=== PATIENT | male | born 1960 | race Caucasian/White ===

== ENCOUNTER 2020-12-05 16:17 | Inpatient (IN) | payer BC ==
[2020-12-05 17:47] VITALS: BMI 39.4
[2020-12-05] MEDS ORDERED: HumaLOG 300 UNITS/3 ML VIAL SC PRN ×2 (19:29)
[2020-12-05] MEDS ORDERED: Bisacodyl 5 MG TAB PO PRN (19:29)
[2020-12-05] MEDS ORDERED: Dextrose 5% in Water 1,000 ML IV PRN (19:29)
[2020-12-05] MEDS ORDERED: Ondansetron PF 4 MG/2 ML Vial IVP PRN (19:29)
[2020-12-05] MEDS ORDERED: Dextrose 50% Abboject 50 ML SYRINGE SLOW IVP PRN (19:29)
[2020-12-05] MEDS ORDERED: hydrALAZINE 20 MG/ML VIAL SLOW IVP PRN (19:34)
[2020-12-05] MEDS: Morphine 4 MG/ML VIAL SLOW IVP PRN (20:53)
[2020-12-05] MEDS: Sodium Chloride 0.9% 1,000 ML IV SCH (20:54)
[2020-12-05] MEDS: Famotidine 20 MG TAB PO SCH (20:54)
[2020-12-05] MEDS: Acetaminophen 325 MG TAB PO PRN (23:51)
[2020-12-05] MEDS: Benzonatate 100 MG CAP PO PRN (23:51)
[2020-12-06] MEDS: Morphine 4 MG/ML VIAL SLOW IVP PRN ×2 (04:42→12:57)
[2020-12-06] MEDS: Benzonatate 100 MG CAP PO PRN ×3 (04:43→20:15)
[2020-12-06 06:22] LABS: ALT (SGPT) 61 U/L (8-55); AST (SGOT) 47 U/L (5-34); Albumin 3.2 g/dL (3.5-5.0); Alkaline Phosphatase 122 U/L (40-110); Anion Gap 12 mmol/L (10-20); BUN (Urea Nitrogen) 14 mg/dL (8.4-25.7); Bilirubin, Total 1.9 mg/dL (0.2-1.2); Calc. Creatinine Clearance 157 mL/min (70-130); Calcium 8.6 mg/dL (7.8-10.44); Carbon Dioxide 23 mmol/L (22-29); Chloride 103 mmol/L (98-107); Globulin 3.2 g/dL (2.4-3.5); Glucose 133 mg/dL (70-105); Potassium 3.7 mmol/L (3.5-5.1); Protein, Total 6.4 g/dL (6.0-8.3); Sodium 134 mmol/L (136-145)
[2020-12-06 06:23] LABS: Band 16 % (5-11); Hemoglobin 12.6 g/dL (14.0-18.0); Lymphocytes 6 % (21-51); MDiff Complete? YES; Mean Corpuscular HGB CONC 33.3 g/dL (32.0-36.0); Mean Corpuscular Hemoglobin 33.7 pg (27.0-31.0); Mean Platelet Volume 7.2 fL (7.4-10.4); Monocytes 10 % (0-10); Neutrophil 68 % (42-75); Platelet Count 174 thou/uL (130-400); RBC Distribution Width 11.6 % (11.5-14.5); Red Blood Cell (RBC) Count 3.75 mill/uL (4.70-6.10); White Blood Cell (WBC) Count 24.3 thou/uL (4.8-10.8)
[2020-12-06] MEDS: Famotidine 20 MG TAB PO SCH ×2 (08:02→20:13)
[2020-12-06] MEDS: Sodium Chloride 0.9% 1,000 ML IV SCH ×2 (08:02→21:31)
[2020-12-06] MEDS: Enoxaparin Sodium 40 MG/0.4 ML SYRINGE SC SCH (08:02)
[2020-12-06] MEDS: HYDROcodone/Acetaminophen 5/325 mg Tablet PO PRN ×2 (08:03→17:03)
[2020-12-06] MEDS ORDERED: Loperamide HCl 2 MG CAP PO PRN (08:17)
[2020-12-06] MEDS ORDERED: Calcium Carbonate 500 MG ChewTAB PO PRN (08:17)
[2020-12-06] MEDS ORDERED: Senokot S 8.6-50 MG TAB PO PRN (08:17)
[2020-12-06] MEDS ORDERED: Sodium Chloride 0.65% Nasal 44 ML BOT EA NARE PRN (08:17)
[2020-12-06] MEDS ORDERED: Cepastat Lozenges 1 LOZ PO PRN (08:17)
[2020-12-06] MEDS ORDERED: Ondansetron ODT 4 MG TAB PO PRN (08:17)
[2020-12-06] MEDS ORDERED: Loratadine 10 MG TAB PO PRN (08:17)
[2020-12-06] MEDS: Folic Acid 1 MG TAB PO SCH (08:50)
[2020-12-06] MEDS: guaiFENesin ER 600 MG TAB PO SCH ×2 (08:50→20:13)
[2020-12-06] MEDS: Cyanocobalamin (Vitamin B-12) 1,000 MCG TAB PO SCH (08:50)
[2020-12-06] MEDS: Thiamine 100 MG TAB PO SCH (08:50)
[2020-12-06 12:32] LABS: Legionella Urinary Ag Negative (Negative); Strep pneumo Urine Ag NEGATIVE (NEGATIVE)
[2020-12-06] MEDS: GUAIFENESIN SF SOLN 200 MG/10 ML UDCUP PO PRN (17:04)
[2020-12-06] MEDS: Acetaminophen 325 MG TAB PO PRN (20:15)
[2020-12-06] MEDS: Zolpidem Tartrate 5 MG TAB PO PRN (20:22)
[2020-12-07] MEDS: GUAIFENESIN SF SOLN 200 MG/10 ML UDCUP PO PRN (01:42)
[2020-12-07] MEDS: HYDROcodone/Acetaminophen 5/325 mg Tablet PO PRN ×2 (01:42→05:45)
[2020-12-07] MEDS: Sodium Chloride 0.9% 1,000 ML IV SCH (01:46)
[2020-12-07] MEDS: Benzonatate 100 MG CAP PO PRN ×2 (05:45→08:30)
[2020-12-07 06:26] LABS: Hemoglobin 12.3 g/dL (14.0-18.0); Mean Corpuscular HGB CONC 32.5 g/dL (32.0-36.0); Mean Corpuscular Hemoglobin 32.5 pg (27.0-31.0); Mean Corpuscular Volume 99.8 fL (78.0-98.0); Mean Platelet Volume 6.9 fL (7.4-10.4); Platelet Count 185 thou/uL (130-400); RBC Distribution Width 11.6 % (11.5-14.5); Red Blood Cell (RBC) Count 3.79 mill/uL (4.70-6.10); White Blood Cell (WBC) Count 16.7 thou/uL (4.8-10.8)
[2020-12-07 06:45] LABS: ALT (SGPT) 54 U/L (8-55); AST (SGOT) 42 U/L (5-34); Albumin 3.1 g/dL (3.5-5.0); Alkaline Phosphatase 83 U/L (40-110); Anion Gap 10 mmol/L (10-20); BUN (Urea Nitrogen) 12 mg/dL (8.4-25.7); Bilirubin, Total 0.9 mg/dL (0.2-1.2); Calc. Creatinine Clearance 169 mL/min (70-130); Calcium 8.8 mg/dL (7.8-10.44); Carbon Dioxide 23 mmol/L (22-29); Chloride 104 mmol/L (98-107); Globulin 3.2 g/dL (2.4-3.5); Glucose 107 mg/dL (70-105); Magnesium 1.7 mg/dL (1.6-2.6); Phosphorus 2.1 mg/dL (2.3-4.7); Potassium 3.6 mmol/L (3.5-5.1); Protein, Total 6.3 g/dL (6.0-8.3); Sodium 133 mmol/L (136-145)
[2020-12-07] MEDS ORDERED: PHOS-NAK 1 PKT PACK PO SCH (07:00)
[2020-12-07 07:02] LABS: HBCM Index 0.06 S/CO (0-0.79); HBSAg Index 0.22 S/CO (0-0.99); Hep A IgM AB Non-Reactive (NonReactive); Hep A IgM S/CO 0.66 S/CO (0-0.79); Hep B Surf Ag Non-Reactive S/CO (NonReactive); Hepatitis B Core IgM Abs Non-Reactive (NonReactive)
[2020-12-07 07:14] LABS: Band 21 % (5-11); Eosinophils 1 % (0-10); Lymphocytes 8 % (21-51); MDiff Complete? YES; Monocytes 6 % (0-10); Neutrophil 64 % (42-75)
[2020-12-07 07:20] LABS: Hep C IgG Ab Reflex HepC Qnt (NonReactive); Hep C Index 16.25 S/CO (0-0.79)
[2020-12-07] MEDS: Potassium Chloride 10 MEQ TAB PO SCH (08:32)
[2020-12-07] MEDS: Magnesium Oxide 400 MG TAB PO SCH (08:32)
[2020-12-07] MEDS: Folic Acid 1 MG TAB PO SCH (08:32)
[2020-12-07] MEDS: Thiamine 100 MG TAB PO SCH (08:32)
[2020-12-07] MEDS: Famotidine 20 MG TAB PO SCH ×2 (08:32→21:05)
[2020-12-07] MEDS: guaiFENesin ER 600 MG TAB PO SCH ×2 (08:32→21:04)
[2020-12-07] MEDS: Cyanocobalamin (Vitamin B-12) 1,000 MCG TAB PO SCH (08:33)
[2020-12-07] MEDS: Enoxaparin Sodium 40 MG/0.4 ML SYRINGE SC SCH (08:34)
[2020-12-07] MEDS: Zolpidem Tartrate 5 MG TAB PO PRN (21:05)
[2020-12-08] MEDS: Acetaminophen 325 MG TAB PO PRN (02:32)
[2020-12-08] MEDS: Benzonatate 100 MG CAP PO PRN ×2 (02:32→05:57)
[2020-12-08] MEDS: HYDROcodone/Acetaminophen 5/325 mg Tablet PO PRN (05:58)
[2020-12-08 06:19] LABS: #Eosinphils 0.3 thou/uL (0.0-0.7); #Lymphocytes 2.4 thou/uL (1.20-3.40); #Monocytes 0.7 thou/uL (0.11-0.59); #Neutrophils 6.4 thou/uL (1.40-6.50); %Basophils 0.2 % (0.0-1.0); %Eosinophils 2.8 % (0.0-10.0); %Lymphocytes 24.5 % (21.0-51.0); %Monocytes 7.5 % (0.0-10.0); Hemoglobin 12.7 g/dL (14.0-18.0); Mean Corpuscular HGB CONC 34.4 g/dL (32.0-36.0); Mean Corpuscular Volume 98.7 fL (78.0-98.0); Mean Platelet Volume 6.7 fL (7.4-10.4); Platelet Count 199 thou/uL (130-400); RBC Distribution Width 11.6 % (11.5-14.5); Red Blood Cell (RBC) Count 3.74 mill/uL (4.70-6.10); White Blood Cell (WBC) Count 9.9 thou/uL (4.8-10.8)
[2020-12-08 06:53] LABS: Anion Gap 11 mmol/L (10-20); BUN (Urea Nitrogen) 11 mg/dL (8.4-25.7); Calc. Creatinine Clearance 167 mL/min (70-130); Calcium 8.8 mg/dL (7.8-10.44); Carbon Dioxide 25 mmol/L (22-29); Chloride 104 mmol/L (98-107); Glucose 112 mg/dL (70-105); Phosphorus 3.2 mg/dL (2.3-4.7); Potassium 3.7 mmol/L (3.5-5.1); Sodium 136 mmol/L (136-145)
[2020-12-08] MEDS: Famotidine 20 MG TAB PO SCH (08:17)
[2020-12-08] MEDS: Magnesium Oxide 400 MG TAB PO SCH (08:17)
[2020-12-08] MEDS: Potassium Chloride 10 MEQ TAB PO SCH (08:17)
[2020-12-08] MEDS: Thiamine 100 MG TAB PO SCH (08:18)
[2020-12-08] MEDS: Cyanocobalamin (Vitamin B-12) 1,000 MCG TAB PO SCH (08:18)
[2020-12-08] MEDS: Enoxaparin Sodium 40 MG/0.4 ML SYRINGE SC SCH (08:18)
[2020-12-08] MEDS: Folic Acid 1 MG TAB PO SCH (08:18)
[2020-12-08] MEDS: guaiFENesin ER 600 MG TAB PO SCH (08:18)
[2020-12-08 08:23] VITALS: BP 138/82; TEMP 98
[2020-12-09 18:38] LABS: HCV log10 4.185 (.); Hep C PCR-Quant 15300 IU/mL (.)
== END 2020-12-08 11:18 | disposition home or self-care (01) | DRG 871 ==
LOC: T4-B 16:17
PROVIDERS: ADMIT Internal Medicine; ATTEND Internal Medicine
DX: A41.9 Sepsis, unspecified organism (principal); J18.9 Pneumonia, unspecified organism; E87.2 Acidosis; N30.00 Acute cystitis without hematuria; I10 Essential (primary) hypertension; E11.40 Type 2 diabetes mellitus with diabetic neuropathy, unspecified; R94.5 Abnormal results of liver function studies; K74.60 Unspecified cirrhosis of liver; D53.9 Nutritional anemia, unspecified; B18.2 Chronic viral hepatitis C; E66.9 Obesity, unspecified; Z68.39 Body mass index [BMI] 39.0-39.9, adult
CPT/HCPCS: 36415; 36416; 74176; 80048; 80053; 80074; 83605; 83735; 84100; 85007; 85025; 85027; 87070; 87086; 87205; 87449; 87522; 87899; J1650; J1956; J2270

== ENCOUNTER 2021-07-30 09:42 | Outpatient (CLI) | payer BC | END 2021-07-30 09:43 | disposition home or self-care (01) | LOC: ULT 09:42 | PROVIDERS: ATTEND Physician Assistant Medical | DX: K74.60 Unspecified cirrhosis of liver (principal); B18.2 Chronic viral hepatitis C; R16.1 Splenomegaly, not elsewhere classified | CPT/HCPCS: 76705 ==

== ENCOUNTER 2021-12-21 15:40 | Inpatient (IN) | payer BC ==
[~2021-12-21 15:40] MED LIST: Iopamidol 370 76% 100 ML VIAL ONE
[2021-12-21 16:38] LABS: INR-International Normal Ratio 1.1; Prothrombin Time 13.9 sec (12.0-14.7)
[2021-12-21 16:41] LABS: Hemoglobin 14.6 g/dL (14.0-18.0); Mean Corpuscular HGB CONC 33.2 g/dL (32.0-36.0); Mean Corpuscular Hemoglobin 32.8 pg (27.0-31.0); Mean Corpuscular Volume 98.6 fL (78.0-98.0); Mean Platelet Volume 6.4 fL (7.4-10.4); Platelet Count 178 thou/uL (130-400); RBC Distribution Width 11.9 % (11.5-14.5); Red Blood Cell (RBC) Count 4.44 mill/uL (4.70-6.10); White Blood Cell (WBC) Count 14.6 thou/uL (4.8-10.8)
[2021-12-21 16:45] LABS: ALT (SGPT) 27 U/L (8-55); AST (SGOT) 27 U/L (5-34); Albumin 4.2 g/dL (3.5-5.0); Alkaline Phosphatase 96 U/L (40-110); Anion Gap 18 mmol/L (10-20); BUN (Urea Nitrogen) 15 mg/dL (8.4-25.7); Bilirubin, Total 1.7 mg/dL (0.2-1.2); Calc. Creatinine Clearance 0 mL/min (70-130); Calcium 9.4 mg/dL (7.8-10.44); Carbon Dioxide 22 mmol/L (22-29); Chloride 97 mmol/L (98-107); Globulin 4.1 g/dL (2.4-3.5); Glucose 240 mg/dL (70-105); Potassium 4.2 mmol/L (3.5-5.1); Protein, Total 8.3 g/dL (6.0-8.3); Sodium 133 mmol/L (136-145)
[2021-12-21] MEDS ORDERED: cefTRIAXone\\ROCEPHIN 2 GM VIAL ONE (16:54)
[2021-12-21 17:00] LABS: Band 7 % (5-11); Lymphocytes 8 % (21-51); MDiff Complete? YES; Monocytes 8 % (0-10); Neutrophil 72 % (42-75); Platelet Morphology Comment Appears Adequate; Polychromasia SLIGHT = 2-3 cells (100X) (0-2/hpf); Reactive Lymphocytes 5 % (0-10); Stomatocytes SLIGHT = 2-5 cells (100X) (0-1/hpf)
[2021-12-21 17:22] LABS: CK (CPK) 134 U/L (30-200); Lipase 23 U/L (8-78)
[2021-12-21] MEDS ORDERED: Acetaminophen 500 MG TAB ONE (17:33)
[2021-12-21] MEDS ORDERED: Azithromycin 500 MG VIAL ONE (17:33)
[2021-12-21 18:48] LABS: SARS-CoV-2 NAA Rapid Test Not Detected (NotDetected)
[2021-12-21] MEDS ORDERED: Ibuprofen 800 MG TAB ONE (19:15)
[2021-12-21] MEDS ORDERED: HumaLOG 300 UNITS/3 ML VIAL SC PRN ×2 (19:50)
[2021-12-21] MEDS ORDERED: Bisacodyl 5 MG TAB PO PRN (19:50)
[2021-12-21] MEDS ORDERED: Dextrose 50% Abboject 50 ML SYRINGE SLOW IVP PRN (19:50)
[2021-12-21] MEDS ORDERED: Dextrose 5% in Water 1,000 ML IV PRN (19:50)
[2021-12-21] MEDS ORDERED: Ondansetron PF 4 MG/2 ML Vial IVP PRN (19:50)
[2021-12-21] MEDS ORDERED: Zolpidem Tartrate 5 MG TAB PO PRN (19:50)
[2021-12-21] MEDS ORDERED: hydrALAZINE 20 MG/ML VIAL SLOW IVP PRN (19:54)
[2021-12-21] MEDS ORDERED: Morphine 2 MG/ML VIAL SLOW IVP PRN (19:54)
[2021-12-21] MEDS ORDERED: Sodium Chloride 0.9% 1,000 ML IV SCH (20:00)
[2021-12-21 21:01] VITALS: BMI 40.0
[2021-12-21] MEDS: Gabapentin 300 MG CAP PO SCH (21:30)
[2021-12-21] MEDS: Acetaminophen 325 MG TAB PO PRN (21:30)
[2021-12-21] MEDS: Cefepime 2 GM in Sodium Chloride 0.9% 100 ML IVPB SCH ×2 (21:31→23:34)
[2021-12-21] MEDS: Atorvastatin Calcium 20 MG TAB PO SCH (21:31)
[2021-12-21] MEDS: Famotidine 20 MG TAB PO SCH (21:31)
[2021-12-21] MEDS: HYDROcodone/Acetaminophen 10/325 mg Tablet PO PRN (23:33)
[2021-12-21] MEDS: Propranolol 10 MG TAB PO SCH (23:34)
[2021-12-22 04:37] LABS: #Eosinphils 0.2 thou/uL (0.0-0.7); #Lymphocytes 1.8 thou/uL (1.20-3.40); #Monocytes 1.3 thou/uL (0.11-0.59); #Neutrophils 7.3 thou/uL (1.40-6.50); %Basophils 0.3 % (0.0-1.0); %Eosinophils 1.8 % (0.0-10.0); %Lymphocytes 17.2 % (21.0-51.0); %Neutrophils 68.8 % (42.0-75.0); Hemoglobin 13.3 g/dL (14.0-18.0); Mean Corpuscular HGB CONC 33.1 g/dL (32.0-36.0); Mean Corpuscular Hemoglobin 33.5 pg (27.0-31.0); Mean Platelet Volume 6.8 fL (7.4-10.4); Platelet Count 159 thou/uL (130-400); RBC Distribution Width 11.9 % (11.5-14.5); Red Blood Cell (RBC) Count 3.97 mill/uL (4.70-6.10); White Blood Cell (WBC) Count 10.7 thou/uL (4.8-10.8)
[2021-12-22 04:58] LABS: ALT (SGPT) 25 U/L (8-55); AST (SGOT) 23 U/L (5-34); Albumin 3.5 g/dL (3.5-5.0); Alkaline Phosphatase 80 U/L (40-110); Anion Gap 11 mmol/L (10-20); BUN (Urea Nitrogen) 16 mg/dL (8.4-25.7); Bilirubin, Total 1.2 mg/dL (0.2-1.2); Calc. Creatinine Clearance 136 mL/min (70-130); Calcium 8.6 mg/dL (7.8-10.44); Carbon Dioxide 27 mmol/L (22-29); Chloride 103 mmol/L (98-107); Globulin 3.4 g/dL (2.4-3.5); Glucose 157 mg/dL (70-105); Potassium 3.8 mmol/L (3.5-5.1); Protein, Total 6.9 g/dL (6.0-8.3); Sodium 137 mmol/L (136-145); Troponin I Less than 0.010 ng/mL (< 0.028)
[2021-12-22] MEDS: Propranolol 10 MG TAB PO SCH ×4 (05:41→23:42)
[2021-12-22] MEDS: HYDROcodone/Acetaminophen 10/325 mg Tablet PO PRN ×2 (05:59→20:37)
[2021-12-22] MEDS ORDERED: metFORMIN 500 MG TAB PO SCH (08:00)
[2021-12-22] MEDS: Famotidine 20 MG TAB PO SCH ×2 (09:09→20:37)
[2021-12-22] MEDS: Gabapentin 300 MG CAP PO SCH ×3 (09:09→20:37)
[2021-12-22] MEDS: Enoxaparin Sodium 40 MG/0.4 ML SYRINGE SC SCH (09:09)
[2021-12-22] MEDS: Acetaminophen 325 MG TAB PO PRN (11:58)
[2021-12-22] MEDS: Cefepime 2 GM in Sodium Chloride 0.9% 100 ML IVPB SCH (11:58)
[2021-12-22] MEDS: Sodium Chloride 0.9% 1,000 ML IV SCH (14:28)
[2021-12-22] MEDS: Atorvastatin Calcium 20 MG TAB PO SCH (20:37)
[2021-12-22] MEDS: Guaifenesin DM 100-10/5 ML UDCUP PO PRN (20:37)
[2021-12-23 04:48] LABS: #Eosinphils 0.4 thou/uL (0.0-0.7); #Lymphocytes 2.5 thou/uL (1.20-3.40); #Neutrophils 5.3 thou/uL (1.40-6.50); %Basophils 0.2 % (0.0-1.0); %Eosinophils 4.9 % (0.0-10.0); %Monocytes 10.9 % (0.0-10.0); %Neutrophils 57.2 % (42.0-75.0); Hemoglobin 13.3 g/dL (14.0-18.0); Mean Corpuscular HGB CONC 33.9 g/dL (32.0-36.0); Mean Corpuscular Hemoglobin 33.9 pg (27.0-31.0); Mean Platelet Volume 6.4 fL (7.4-10.4); Platelet Count 186 thou/uL (130-400); RBC Distribution Width 11.9 % (11.5-14.5); Red Blood Cell (RBC) Count 3.93 mill/uL (4.70-6.10); White Blood Cell (WBC) Count 9.3 thou/uL (4.8-10.8)
[2021-12-23 05:08] LABS: Anion Gap 13 mmol/L (10-20); BUN (Urea Nitrogen) 13 mg/dL (8.4-25.7); Calc. Creatinine Clearance 157 mL/min (70-130); Calcium 8.8 mg/dL (7.8-10.44); Carbon Dioxide 24 mmol/L (22-29); Chloride 102 mmol/L (98-107); Glucose 105 mg/dL (70-105); Potassium 3.7 mmol/L (3.5-5.1); Sodium 135 mmol/L (136-145)
[2021-12-23] MEDS: Propranolol 10 MG TAB PO SCH ×3 (05:27→22:16)
[2021-12-23] MEDS: Guaifenesin DM 100-10/5 ML UDCUP PO PRN (05:27)
[2021-12-23] MEDS: HYDROcodone/Acetaminophen 10/325 mg Tablet PO PRN ×2 (05:27→15:17)
[2021-12-23] MEDS: Enoxaparin Sodium 40 MG/0.4 ML SYRINGE SC SCH (09:27)
[2021-12-23] MEDS: Sodium Chloride 0.9% 1,000 ML IV SCH (09:27)
[2021-12-23] MEDS: Gabapentin 300 MG CAP PO SCH ×2 (09:27→15:14)
[2021-12-23] MEDS: Famotidine 20 MG TAB PO SCH ×2 (09:27→22:16)
[2021-12-23] MEDS ORDERED: HumaLOG 300 UNITS/3 ML VIAL SC PRN (17:05)
[2021-12-23] MEDS: Atorvastatin Calcium 20 MG TAB PO SCH (22:16)
[2021-12-23] MEDS: Gabapentin 400 MG CAP PO SCH (22:19)
[2021-12-23] MEDS ORDERED: traZODone HCl 50 MG TAB PO SCH (23:15)
[2021-12-24] MEDS ORDERED: glipiZIDE 5 MG TAB PO SCH (07:30)
[2021-12-24] MEDS: Famotidine 20 MG TAB PO SCH (08:28)
[2021-12-24] MEDS: Propranolol 10 MG TAB PO SCH (08:28)
[2021-12-24] MEDS: Gabapentin 400 MG CAP PO SCH (08:39)
[2021-12-24] MEDS ORDERED: Cyanocobalamin (Vitamin B-12) 1,000 MCG TAB PO SCH ×2 (09:00)
[2021-12-24 11:04] VITALS: BP 134/65; TEMP 98
== END 2021-12-24 12:14 | disposition home or self-care (01) | DRG 871 ==
LOC: ERS 15:40 → 2NO 19:23
PROVIDERS: ADMIT Internal Medicine; ATTEND Internal Medicine
DX: A41.9 Sepsis, unspecified organism (principal); J18.9 Pneumonia, unspecified organism; Z68.41 Body mass index [BMI] 40.0-44.9, adult; E87.1 Hypo-osmolality and hyponatremia; Z20.822 Contact with and (suspected) exposure to COVID-19; M54.9 Dorsalgia, unspecified; E66.9 Obesity, unspecified; M79.661 Pain in right lower leg; D53.9 Nutritional anemia, unspecified; G89.4 Chronic pain syndrome; K74.60 Unspecified cirrhosis of liver; R16.1 Splenomegaly, not elsewhere classified; N18.2 Chronic kidney disease, stage 2 (mild); N40.0 Benign prostatic hyperplasia without lower urinary tract symptoms; E78.5 Hyperlipidemia, unspecified; E11.22 Type 2 diabetes mellitus with diabetic chronic kidney disease; I12.9 Hypertensive chronic kidney disease with stage 1 through stage 4 chronic kidney disease, or unspecified chronic kidney disease; E11.40 Type 2 diabetes mellitus with diabetic neuropathy, unspecified; Z79.899 Other long term (current) drug therapy; Z79.84 Long term (current) use of oral hypoglycemic drugs
CPT/HCPCS: 36415; 36416; 71045; 71275; 80048; 80053; 82550; 83605; 83690; 83880; 84443; 84484; 85025; 85379; 85610; 85730; 87040; 87804; 93005; 96365; 96367; J0456; J0692; J0696; J1650; J1815; J1956; J3490; J7050; Q9967; U0002

== ENCOUNTER 2022-01-28 07:07 | Outpatient (CLI) | payer BC | END 2022-01-28 07:08 | disposition home or self-care (01) | LOC: BICULT 07:07 | PROVIDERS: ATTEND Physician Assistant Medical | DX: K74.60 Unspecified cirrhosis of liver (principal); I85.00 Esophageal varices without bleeding; R16.1 Splenomegaly, not elsewhere classified | CPT/HCPCS: 76705 ==

== ENCOUNTER 2022-03-22 17:00 | Outpatient (CLI) | payer BC | END 2022-03-22 17:01 | disposition home or self-care (01) | LOC: SLEEPLAB 17:00 | PROVIDERS: ATTEND Registered Nurse Community Health | DX: G47.33 Obstructive sleep apnea (adult) (pediatric) (principal); R06.83 Snoring; E11.9 Type 2 diabetes mellitus without complications; I10 Essential (primary) hypertension; G47.00 Insomnia, unspecified; E66.9 Obesity, unspecified; Z68.41 Body mass index [BMI] 40.0-44.9, adult | CPT/HCPCS: 95806 ==

== ENCOUNTER 2022-05-14 10:50 | Inpatient (IN) | payer BC ==
[2022-05-14] MEDS ORDERED: Ondansetron PF 4 MG/2 ML Vial ONE (12:45)
[2022-05-14 13:11] LABS: Hemoglobin 15.1 g/dL (14.0-18.0); Mean Corpuscular HGB CONC 33.2 g/dL (32.0-36.0); Mean Corpuscular Hemoglobin 33.7 pg (27.0-31.0); Mean Platelet Volume 7.7 fL (7.4-10.4); Platelet Count 140 thou/uL (130-400); RBC Distribution Width 11.7 % (11.5-14.5); Red Blood Cell (RBC) Count 4.49 mill/uL (4.70-6.10)
[2022-05-14 13:30] LABS: Band 20 % (5-11); Lymphocytes 4 % (21-51); MDiff Complete? YES; Macrocytosis SLIGHT = 6-15 cells (100X) (0-5/hpf); Monocytes 5 % (0-10); Neutrophil 71 % (42-75); Platelet Morphology Comment Appears Adequate
[2022-05-14 13:32] LABS: Anion Gap 20 mmol/L (10-20); BUN (Urea Nitrogen) 12 mg/dL (8.4-25.7); Calc. Creatinine Clearance 0 mL/min (70-130); Carbon Dioxide 19 mmol/L (22-29); Chloride 100 mmol/L (98-107); Potassium 4.8 mmol/L (3.5-5.1); Sodium 134 mmol/L (136-145)
[2022-05-14] MEDS ORDERED: Cefepime 2 GM VIAL ONE (13:32)
[2022-05-14 13:33] LABS: ALT (SGPT) 18 U/L (8-55); AST (SGOT) 20 U/L (5-34); Albumin 4.2 g/dL (3.5-5.0); Alkaline Phosphatase 96 U/L (40-110); Bilirubin, Total 2.1 mg/dL (0.2-1.2); CK (CPK) 53 U/L (30-200); Calcium 9.2 mg/dL (7.8-10.44); Estimated GFR 78; Globulin 3.5 g/dL (2.4-3.5); Glucose 214 mg/dL (70-105); Lipase 11 U/L (8-78); Protein, Total 7.7 g/dL (6.0-8.3)
[2022-05-14] MEDS ORDERED: Vancomycin 1 GM/200 ML BAG ONE (14:10)
[2022-05-14] MEDS ORDERED: Ondansetron ODT 4 MG TAB SL PRN (14:30)
[2022-05-14] MEDS ORDERED: Ondansetron PF 4 MG/2 ML Vial IVP PRN (14:30)
[2022-05-14 14:36] LABS: Bilirubin Negative (Negative); Blood, Urine 1+ (Negative); Clarity Clear (Clear); Glucose, Urine (Dipstick) >=1000 mg/dL (Negative); Ketone, Urine 40 mg/dL (Negative); Leukocyte 500 Leu/uL (Negative); Nitrite Negative (Negative); Protein, Urine (Dipstick) 100 mg/dL (Neg-Trace); Squamous Epithelial 0-3 HPF (0-3); Urobilinogen 3 mg/dL (Less than 2); WBC/HPF Greater than 50 HPF (0-3); pH, Urine 5.5 (5.0-9.0)
[2022-05-14 14:37] LABS: Bacteria/HPF 1+ HPF (None Seen)
[2022-05-14] MEDS ORDERED: Dextrose 50% Abboject 50 ML SYRINGE SLOW IVP PRN (14:38)
[2022-05-14] MEDS ORDERED: Acetaminophen 325 MG TAB PO PRN (14:38)
[2022-05-14] MEDS ORDERED: Dextrose 5% in Water 1,000 ML IV PRN (14:38)
[2022-05-14] MEDS ORDERED: HumaLOG 300 UNITS/3 ML VIAL SC PRN (14:38)
[2022-05-14] MEDS ORDERED: cefTRIAXone\\ROCEPHIN 500 MG in Sodium Chloride 0.9% 0 ML IVPB SCH (14:45)
[2022-05-14 15:08] LABS: SARS-CoV-2 NAA Rapid Test Not Detected (NotDetected)
[2022-05-14 15:54] VITALS: BMI 37.6
[2022-05-14] MEDS: Sodium Chloride 0.9% 1,000 ML IV SCH ×2 (16:02→22:51)
[2022-05-14] MEDS: cefTRIAXone\\ROCEPHIN 2 GM in Sodium Chloride 0.9% 100 ML IVPB SCH (16:35)
[2022-05-14] MEDS: Azithromycin 1,000 MG in Sodium Chloride 0.9% 500 ML IVPB SCH (17:01)
[2022-05-14] MEDS: HYDROcodone/Acetaminophen 5/325 mg Tablet PO PRN (17:01)
[2022-05-14] MEDS: Atorvastatin Calcium 20 MG TAB PO SCH (20:12)
[2022-05-14] MEDS: Gabapentin 300 MG CAP PO SCH (20:12)
[2022-05-14] MEDS: Tamsulosin HCl 0.4 MG CAP PO SCH (20:12)
[2022-05-14] MEDS: Propranolol 10 MG TAB PO SCH (20:12)
[2022-05-14] MEDS: Melatonin 3 MG TAB PO PRN (22:21)
[2022-05-15] MEDS: HYDROcodone/Acetaminophen 5/325 mg Tablet PO PRN ×3 (04:34→20:30)
[2022-05-15] MEDS: Sodium Chloride 0.9% 1,000 ML IV SCH ×2 (05:04→10:24)
[2022-05-15 06:45] LABS: Anion Gap 11 mmol/L (10-20); BUN (Urea Nitrogen) 12 mg/dL (8.4-25.7); Calc. Creatinine Clearance 146 mL/min (70-130); Calcium 8.5 mg/dL (7.8-10.44); Carbon Dioxide 24 mmol/L (22-29); Chloride 104 mmol/L (98-107); Estimated GFR 100; Glucose 148 mg/dL (70-105); Potassium 3.6 mmol/L (3.5-5.1); Sodium 135 mmol/L (136-145)
[2022-05-15] MEDS: Gabapentin 300 MG CAP PO SCH ×2 (08:46→20:25)
[2022-05-15] MEDS: Propranolol 10 MG TAB PO SCH ×2 (08:46→20:25)
[2022-05-15] MEDS: Enoxaparin Sodium 40 MG/0.4 ML SYRINGE SC SCH (08:46)
[2022-05-15 09:00] LABS: Band 10 % (5-11); Hemoglobin 12.7 g/dL (14.0-18.0); Lymphocytes 11 % (21-51); MDiff Complete? YES; Mean Corpuscular HGB CONC 32.9 g/dL (32.0-36.0); Mean Corpuscular Hemoglobin 33.7 pg (27.0-31.0); Mean Platelet Volume 7.5 fL (7.4-10.4); Metamyelocyte 1 % (0-0); Monocytes 2 % (0-10); Neutrophil 76 % (42-75); Platelet Count 146 thou/uL (130-400); Platelet Morphology Comment Appears Adequate; RBC Distribution Width 11.4 % (11.5-14.5); RBC Morphology Normal; Red Blood Cell (RBC) Count 3.77 mill/uL (4.70-6.10); White Blood Cell (WBC) Count 19.2 thou/uL (4.8-10.8)
[2022-05-15] MEDS ORDERED: FLU VACC QS2022-23(6MOS UP)/PF 60 MCG/0.5 ML SYRINGE IM ONE (09:00)
[2022-05-15] MEDS: cefTRIAXone\\ROCEPHIN 2 GM in Sodium Chloride 0.9% 100 ML IVPB SCH (15:43)
[2022-05-15] MEDS: Azithromycin 1,000 MG in Sodium Chloride 0.9% 500 ML IVPB SCH (16:35)
[2022-05-15] MEDS: Tamsulosin HCl 0.4 MG CAP PO SCH (20:25)
[2022-05-15] MEDS: Atorvastatin Calcium 20 MG TAB PO SCH (20:25)
[2022-05-15] MEDS: Melatonin 3 MG TAB PO PRN (20:30)
[2022-05-16 07:07] LABS: #Basophils 0.2 thou/uL (0.0-0.2); #Eosinphils 0.3 thou/uL (0.0-0.7); #Lymphocytes 1.9 thou/uL (1.20-3.40); #Monocytes 0.8 thou/uL (0.11-0.59); #Neutrophils 11.1 thou/uL (1.40-6.50); %Basophils 1.7 % (0.0-1.0); %Eosinophils 2.1 % (0.0-10.0); %Lymphocytes 13.4 % (21.0-51.0); %Monocytes 5.6 % (0.0-10.0); %Neutrophils 77.2 % (42.0-75.0); Mean Corpuscular HGB CONC 32.1 g/dL (32.0-36.0); Mean Corpuscular Hemoglobin 32.1 pg (27.0-31.0); Mean Platelet Volume 7.1 fL (7.4-10.4); Platelet Count 172 thou/uL (130-400); RBC Distribution Width 11.4 % (11.5-14.5); Red Blood Cell (RBC) Count 4.06 mill/uL (4.70-6.10); White Blood Cell (WBC) Count 14.4 thou/uL (4.8-10.8)
[2022-05-16 07:21] LABS: Anion Gap 14 mmol/L (10-20); BUN (Urea Nitrogen) 11 mg/dL (8.4-25.7); Calc. Creatinine Clearance 151 mL/min (70-130); Calcium 9.2 mg/dL (7.8-10.44); Carbon Dioxide 23 mmol/L (22-29); Chloride 102 mmol/L (98-107); Estimated GFR 101; Glucose 129 mg/dL (70-105); Potassium 3.6 mmol/L (3.5-5.1); Sodium 135 mmol/L (136-145)
[2022-05-16 08:31] VITALS: BP 150/80; TEMP 97.7
[2022-05-16] MEDS: Enoxaparin Sodium 40 MG/0.4 ML SYRINGE SC SCH (08:34)
[2022-05-16] MEDS: Gabapentin 300 MG CAP PO SCH (08:34)
[2022-05-16] MEDS: Propranolol 10 MG TAB PO SCH (08:34)
[2022-05-16] MEDS ORDERED: Azithromycin 500 MG in Sodium Chloride 0.9% 250 ML 250 ML IVPB SCH (16:00)
== END 2022-05-16 11:48 | disposition home or self-care (01) | DRG 871 ==
LOC: ERS 10:50 → T4-B 14:14
PROVIDERS: ADMIT Family Medicine; ATTEND Family Medicine
DX: A41.9 Sepsis, unspecified organism (principal); J18.9 Pneumonia, unspecified organism; N39.0 Urinary tract infection, site not specified; Z20.822 Contact with and (suspected) exposure to COVID-19; N40.1 Benign prostatic hyperplasia with lower urinary tract symptoms; R33.8 Other retention of urine; E78.5 Hyperlipidemia, unspecified; I11.9 Hypertensive heart disease without heart failure; F39 Unspecified mood [affective] disorder; I10 Essential (primary) hypertension; M79.673 Pain in unspecified foot; Z28.21 Immunization not carried out because of patient refusal; Z79.899 Other long term (current) drug therapy; Z79.84 Long term (current) use of oral hypoglycemic drugs
CPT/HCPCS: 36415; 36416; 71045; 80048; 80053; 81003; 81015; 82550; 83605; 83690; 83880; 84484; 85025; 87040; 87077; 87086; 87186; 93005; J0456; J0692; J0696; J1650; J2405; J3370; J3490; J7030; J7050

== ENCOUNTER 2022-07-20 08:05 | Emergency (ER) | payer BC ==
[2022-07-20 08:54] LABS: #Eosinphils 0.2 thou/uL (0.0-0.7); #Lymphocytes 2.1 thou/uL (1.20-3.40); #Monocytes 0.5 thou/uL (0.11-0.59); #Neutrophils 2.9 thou/uL (1.40-6.50); %Basophils 0.1 % (0.0-1.0); %Eosinophils 3.3 % (0.0-10.0); %Lymphocytes 37.2 % (21.0-51.0); %Monocytes 8.2 % (0.0-10.0); %Neutrophils 51.3 % (42.0-75.0); Hemoglobin 14.1 g/dL (14.0-18.0); Mean Corpuscular HGB CONC 33.7 g/dL (32.0-36.0); Mean Corpuscular Hemoglobin 33.3 pg (27.0-31.0); Mean Corpuscular Volume 98.7 fl (78.0-98.0); Mean Platelet Volume 8.1 fL (7.4-10.4); Platelet Count 154 10x3/uL (130-400); RBC Distribution Width 11.8 % (11.5-14.5); Red Blood Cell (RBC) Count 4.24 mill/uL (4.70-6.10); White Blood Cell (WBC) Count 5.6 10x3/uL (4.8-10.8)
[2022-07-20 09:14] LABS: ALT (SGPT) 24 U/L (8-55); AST (SGOT) 21 U/L (5-34); Albumin 4.3 g/dL (3.4-4.8); Alkaline Phosphatase 99 U/L (40-110); Anion Gap 12 mmol/L (10-20); BUN (Urea Nitrogen) 15 mg/dL (8.4-25.7); Bilirubin, Total 1.1 mg/dL (0.2-1.2); Calc. Creatinine Clearance 0 mL/min (70-130); Calcium 9.3 mg/dL (7.8-10.44); Carbon Dioxide 23 mmol/L (23-31); Chloride 103 mmol/L (98-107); Estimated GFR 96; Globulin 3.1 g/dL (2.4-3.5); Glucose 154 mg/dL (80-115); Lipase 69 U/L (8-78); Potassium 4.2 mmol/L (3.5-5.1); Protein, Total 7.4 g/dL (5.8-8.1); Sodium 134 mmol/L (136-145)
[2022-07-20] MEDS ORDERED: Aspirin Chewable 81 MG TAB ONE ×3 (09:19)
== END 2022-07-20 13:00 | disposition home or self-care (01) ==
LOC: ERS 08:05
DX: R07.9 Chest pain, unspecified (principal); E11.9 Type 2 diabetes mellitus without complications; I10 Essential (primary) hypertension
CPT/HCPCS: 36415; 71045; 80053; 83690; 83880; 84484; 85025; 93005

== ENCOUNTER 2022-07-29 09:06 | Outpatient (CLI) | payer BC | END 2022-07-29 09:07 | disposition home or self-care (01) | LOC: MRI 09:06 | PROVIDERS: ATTEND Family Medicine | DX: M51.36 Other intervertebral disc degeneration, lumbar region (principal); M47.816 Spondylosis without myelopathy or radiculopathy, lumbar region; M43.16 Spondylolisthesis, lumbar region; R60.0 Localized edema | CPT/HCPCS: 72100; 72148 ==

== ENCOUNTER 2023-03-06 09:53 | Outpatient (CLI) | payer BC | END 2023-03-06 09:54 | disposition home or self-care (01) | LOC: ULT 09:53 | PROVIDERS: ATTEND Physician Assistant Medical | DX: K74.60 Unspecified cirrhosis of liver (principal); R16.1 Splenomegaly, not elsewhere classified | CPT/HCPCS: 76705 ==